=== PATIENT | female | born 1995 | race Caucasian/White ===

== ENCOUNTER 2023-11-14 12:24 | Outpatient (REF) | payer MEDICAID, SELFPAY ==
--- NOTE | 2023-11-14 11:00 | PAPFT_PTH ---
PATIENT: Dia Pereyra LOC: [facility] U#:[id number] AGE/SX: 28/F ROOM: RE11/14/[address]: Charline Li CNM : 1995 BED: DIS: 11/14/2023 SPEC #: [id number] RECD: 11/14/23 13:31 STATUS: AMALIA RELesley #: [id number] MARANDA: 11/14/23 11:[address]: Charline Li DEPT: [facility] Cytology RECD BY: Nicolasa Infante ENTERED: 11/14/23 13:32 SP TYPE: PAPFT OT DR: Unknown,Unknown Tissues: 1 - CX/ENDOCX FOR PAP SMEARS Procedures: PAP THIN PREP/[facility] Screening Comments: [id number]
== END 2023-11-14 12:25 | disposition home or self-care (01) ==
LOC: LBN 12:24
PROVIDERS: Visit Provider Advanced Practice Midwife
DX: Z39.2 Encounter for routine postpartum follow-up (principal)
CPT/HCPCS: 88142

== ENCOUNTER 2023-11-20 14:08 | Outpatient (CLI) | payer MEDICAID, SELFPAY ==
[2023-11-20 13:45] LABS: HCT 36.9 % (36.0-46.0); HGB 12.6 g/dL (11.2-15.7); MCH 29.6 pg (27.0-33.0); MCHC 34.1 % (32.0-36.0); MCV 87 fL (80-95); MPV 9.8 fL (8.0-11.0); Platelet Count 297 10^3/uL (130-400); RBC 4.26 10^6/uL (3.93-5.22); RDW 11.9 % (11.7-14.6); RDW-SD 38.1 fL; WBC 9.59 10^3/uL (4.4-10.8)
[2023-11-20 13:50] LABS: Bilirubin Negative (Negative); Blood Large (Negative); Clarity Sl Cloudy (Clear); Glucose Negative (Negative); Ketones Negative (Negative); Leukocyte Esterase Small (Negative); Nitrite Negative (Negative); Specific Gravity >= 1.030 (1.005-1.025); Urobilinogen 0.2 mg/dL (Up to 0.2); pH 5.5 (5-8)
[2023-11-20 13:54] LABS: ALT 61 U/L (14-59); AST 27 U/L (15-37); Albumin 3.5 g/dL (3.4-5.0); Alkaline Phosphatase 158 U/L (46-116); Anion Gap 7.3 mmol/L (3-11); BUN 17 mg/dL (7-18); Bilirubin, Total 0.51 mg/dL (0.2-1.0); CO2 25.7 mmol/L (21.0-32.0); CREATININE 1.2 mg/dL (0.55-1.02); Calcium 9.1 mg/dL (8.5-10.1); Chloride 109 mmol/L (98-107); Estimated GFR 63.23 (mL/min/1.73m2); Glucose 104 mg/dL (74-106); Potassium 4.1 mmol/L (3.5-5.1); Sodium 142 mmol/L (136-145); Total Protein 6.7 g/dL (6.4-8.2)
[2023-11-20 14:16] LABS: RBC 20-50 HPF (0-2)
[2023-11-20 14:17] LABS: Bacteria Few HPF (Negative); C & S Indicated? No/Sq. Contamination; Casts Negative LPF (Negative); Crystals Negative HPF (Negative); Epithelial Cells Moderate HPF (Negative); Mucus Negative (Negative)
== END 2023-11-20 14:09 | disposition home or self-care (01) ==
LOC: LBO 14:08
PROVIDERS: Visit Provider Registered Nurse
DX: R32 Unspecified urinary incontinence (principal); R19.7 Diarrhea, unspecified
CPT/HCPCS: 36415; 80053; 85027; 81003; 81015

== ENCOUNTER 2023-11-22 16:10 | Outpatient (REF) | payer MEDICAID, SELFPAY ==
[2023-11-22 23:36] LABS: C Diff PCR Negative (Negative)
[2023-11-23 23:26] LABS: Campylobacter PCR Negative (Negative); Salmonella PCR Negative (Negative); Shiga Toxin PCR Negative (Negative); Shigella/Enteroinvasive Ecoli Negative (Negative)
[2023-11-27 14:38] LABS: Helicobacter pylori Ag, Feces Negative (Negative)
[2023-11-28 15:15] LABS: Calprotectin 83.6 mcg/g
== END 2023-11-22 16:11 | disposition home or self-care (01) ==
LOC: LBN 16:10
PROVIDERS: Visit Provider Registered Nurse
DX: R19.7 Diarrhea, unspecified (principal)
CPT/HCPCS: 87338; 87493; 87505; 82272; 83993

== ENCOUNTER 2023-12-06 13:14 | Outpatient (CLI) | payer MEDICAID, SELFPAY ==
--- NOTE | 2023-12-06 | DI.RAD_ITS ---
Exam(s) XR NASAL BONES EXAM: XR NASAL BONES CLINICAL HISTORY: INJURY OF NOSE S09.92XA. TECHNIQUE: 2D digital imaging was performed. COMPARISON: No exams were available for comparison FINDINGS: 3 views No evidence of obvious depressed nasal bone fracture. There is high suspicion for nasal bone fracture then follow-up facial bone CT scan be performed IMPRESSION: No evidence of depressed nasal bone fracture. DATA REPOSITORY: RADIATION DOSE DELIVERED:
== END 2023-12-06 13:34 ==
LOC: DI 13:15
PROVIDERS: Visit Provider Physician Assistant Medical
DX: S09.92XA Unspecified injury of nose, initial encounter (principal); X58.XXXA Exposure to other specified factors, initial encounter
CPT/HCPCS: 70160

== ENCOUNTER 2024-01-08 11:21 | Outpatient (CLI) | payer MEDICAID, SELFPAY ==
--- NOTE | 2024-01-08 11:47 | DI.RAD_ITS ---
Exam(s) XR ANKLE LT COMPLETE EXAM: XR ANKLE LT COMPLETE CLINICAL HISTORY: PAIN LT ANKLE JOINT, M25.572, LT ANKLE INVERSION INJURY 1.5 WKS AGO,. TECHNIQUE: 2D digital imaging was performed. COMPARISON: No exams were available for comparison FINDINGS: 3 views No evidence of fracture or widening of the ankle mortise. Talar dome unremarkable. Bone density nor mal. No osseous lesions. No osseous tarsal coalition evident. IMPRESSION: No acute osseous findings in the ankle. DATA REPOSITORY: RADIATION DOSE DELIVERED:
== END 2024-01-08 11:41 ==
LOC: DI 11:21
PROVIDERS: PCP Student in an Organized Health Care Education/Training Program; Visit Provider Nurse Practitioner Family
DX: M25.572 Pain in left ankle and joints of left foot (principal)
CPT/HCPCS: 73610

== ENCOUNTER 2024-01-09 01:51 | Outpatient (CLI) | payer MEDICAID, SELFPAY ==
--- NOTE | 2024-01-09 07:00 | DI.US_ITS ---
Exam(s) US PELVIS TRANSVAGINAL EXAM: US PELVIS TRANSVAGINAL CLINICAL HISTORY: pelvic cramping,abnl uterine bleeding,r10.2,n93.9 TECHNIQUE: Ultrasound of the pelvis was performed both transabdominal and transvaginal. COMPARISON: No exams were available for comparison FINDINGS: UTERUS: Anteverted Measures 8.2 cm length x 4.5 cm AP x 5.5 cm wide. There are no uterine fibroids. Endometrial thickness measures 5 mm. There is no fluid in the endometrial canal. CERVIX: There is small amount of fluid in the endocervical canal. RIGHT OVARY: Measures 0.9 x 3.5 x 2.5 cm Contains sub cm follicular cysts. LEFT OVARY: Measures 3.2 x 2.2 x 3.1 cm Contains sub cm follicular cysts. CUL-DE-SAC: There no extraovarian adnexal masses and there is no free fluid in the cul-de-sac. IMPRESSION: 1. Normal appearing uterus and age-appropriate endometrium. There is, however, some mild fluid noted in the endocervical canal. 2. No abnormal ovarian findings. 3. No free fluid evident in the adnexal regions and cul-de-sac. DATA REPOSITORY:
== END 2024-01-09 02:11 ==
LOC: DI 01:51
PROVIDERS: PCP Student in an Organized Health Care Education/Training Program; Visit Provider Nurse Practitioner Women's Health
DX: R10.2 Pelvic and perineal pain (principal)
CPT/HCPCS: 76830; 76856

== ENCOUNTER 2024-01-24 03:52 | Outpatient (CLI) | payer MEDICAID, SELFPAY | END 2024-01-24 03:53 | disposition home or self-care (01) | PROVIDERS: PCP Student in an Organized Health Care Education/Training Program; Visit Provider Student in an Organized Health Care Education/Training Program | DX: G44.209 Tension-type headache, unspecified, not intractable (principal); G43.909 Migraine, unspecified, not intractable, without status migrainosus | CPT/HCPCS: 94762 ==

== ENCOUNTER 2024-02-25 16:38 | Emergency (ER) | payer MEDICAID, SELFPAY ==
[2024-02-25] VITALS (20 sets, daily range): BP systolic 120–126; BP diastolic 64–79; PULSE 56–110; RESP 15–25; TEMP 36.8; O2SAT 94–98
--- NOTE | 2024-02-25 17:00 | RT.EKG_ITS ---
APPROVED REPORT Exam: Resting ECG Reason for Exam: Lightheadedness Patient Location: E HR:66 bpm ECG Measurements Heart Rate 66 AXIS LA 140 P 79 QRSd 84 QRS 74 QT 368 T 15 QTc 386 Conclusion Sinus rhythm...normal P axis, V-rate 60- 99 Probable left atrial enlargement...P >50mS, <-0.10mV V1
--- NOTE | 2024-02-25 17:18 | ED.GENADUL_ITS ---
Discharge Plan Disposition Patient Disposition: Home Condition: Stable Discharge Details Clinical Impression: Nausea & vomiting, Acute epigastric pain, Dehydration Primary Care Provider: Lakeshia Devi ED Provider: Nicolasa Lisa Home Meds and New Rx's Prescriptions: New prochlorperazine maleate [Compazine] 10 mg tablet 10 mg PO Q6H PRNQty: 10 0RF Continued gabapentin 100 mg capsule 100 mg PO TID ibuprofen 600 mg tablet 600 mg PO Q8H PRN (Reason: headache pain & inflammation) Qty: 60 1RF Rx Instructions: Trial twice a day x 2 weeks WITH FOOD (~noon/8pm) pyridoxine (vitamin B6) 50 mg tablet 50 mg PO DAILY Qty: 90 3RF Rx Instructions: Supplement for Rx sumatriptan succinate [Imitrex] 50 mg tablet See Rx Instructions PO .COMPLEX Qty: 20 1RF Rx Instructions: take 1 tab at onset of headache; if no relief may repeat 1 tab after 1 hour (max = 2 tabs/24 hr for trial period) propranolol 20 mg tablet 60 mg PO DAILY magnesium oxide 400 mg (241.3 mg magnesium) tablet 400 mg PO DAILY naratriptan 2.5 mg tablet See Rx Instructions PO .COMPLEX Rx Instructions: take 1 tab at onset of headache; if no relief may repeat 1 tab after at least 4 hrs; max = 2 tabs/24 hrs PO norethindrone (contraceptive) 0.35 mg tablet 0.35 mg PO DAILY Qty: 84 3RF medroxyprogesterone 150 mg/mL syringe 150 mg IM Q12W Qty: 1 3RF aripiprazole 20 mg tablet 10 mg PO DAILY Qty: 7 0RF Rx Instructions: * Cross-tapering to quetiapine: Take 1/2 tab, qAM x 7 days, then STOP * buspirone 10 mg tablet 10 mg PO BID Qty: 60 2RF duloxetine [Cymbalta] 30 mg capsule,delayed release(DR/EC) 30 mg PO DAILY Qty: 30 2RF quetiapine 50 mg tablet 50 mg PO BID Qty: 60 2RF Rx Instructions: * Take 1/2 tab at dinner and 1/2 tab at bedtime x 1 week, THEN increase to 1 tab at dinner and 1 tab at bedtime every day * lisdexamfetamine [Vyvanse] 20 mg capsule 20 mg PO QAM MDD 20 Qty: 30 0RF Discharge Instructions Instructions: Abdominal Pain, Adult ED, Nausea and Vomiting, Adult ED Additional Instructions: Take your omeprazole as prescribed Take the Zofran as needed for nausea and vomiting, I am sending a prescription for Compazine to your pharmacy, this is another antiemetic Try to have small sips of Gatorade or clara simone, no more than 1 to 2 tablespoons at a time every few minutes as tolerated if you are feeling very nauseous, if you have too much to drink at once I will make you vomit Do not try any solid food into your regularly able to take fluids Please follow-up with your doctor and return earlier should you have new or worsening complaints Discharge Data Discharge Date/Time-TO BE ENTERED AT DEPARTURE: 02/25/24 22:32 HPI General Date/Time Provider Initiated Documentation: 02/25/24 16:44 . HPI Narrative: This 28-year-old female presents with nausea, vomiting, and cramping in her abdomen. She states she has a history of heartburn she has been taking her omeprazole but she frequently has been vomiting it up and thinks it is precipitating exacerbation of her symptoms. 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 She is approximately 4 months denies any known sick contacts. Occasionally when she has vomited frequently throughout the day she has scant blood in her vomitus per patient. She describes it as being dark in color. She denies any obvious blood in her stool. Patient she denies any chest pain or shortness of breath she states that she feels lightheaded and dehydrated palpation. She denies chance of and is currently on her menstruation. Related Data Home Medications ?Medication ?Instructions ?Recorded ?Confirmed magnesium oxide 400 mg (241.3 mg 400 mg PO DAILY 10/24/23 02/25/24 magnesium) tablet propranolol 20 mg tablet 60 mg PO DAILY 10/24/23 02/25/24 naratriptan 2.5 mg tablet See Rx Instructions PO .COMPLEX 11/14/23 02/25/24 norethindrone (contraceptive) 0.35 0.35 mg PO DAILY #84 tabs 12/24/23 02/25/24 mg tablet gabapentin 100 mg capsule 100 mg PO TID 10/08/24 12/09/24 ibuprofen 600 mg tablet 600 mg PO Q8H PRN headache pain & 12/25/23 02/25/24 inflammation #60 tabs pyridoxine (vitamin B6) 50 mg 50 mg PO DAILY #90 tabs 12/25/23 02/25/24 tablet sumatriptan succinate 50 mg tablet See Rx Instructions PO .COMPLEX 12/25/23 02/25/24 (Imitrex) #20 tabs medroxyprogesterone 150 mg/mL 150 mg IM Q12W #1 mL 01/02/24 02/25/24 intramuscular syringe aripiprazole 20 mg tablet 10 mg (1/2 x 20 mg) PO DAILY #7 02/18/24 02/25/24 tabs buspirone 10 mg tablet 10 mg PO BID #60 tabs 02/18/24 02/25/24 duloxetine 30 mg capsule,delayed 30 mg PO DAILY #30 caps 02/18/24 02/25/24 release (Cymbalta) quetiapine 50 mg tablet 50 mg PO BID #60 tabs 02/18/24 02/25/24 lisdexamfetamine 20 mg capsule 20 mg PO QAM #30 caps 02/19/24 02/25/24 (Vyvanse) prochlorperazine maleate 10 mg 10 mg PO Q6H PRN #10 tabs 02/25/24 tablet (Compazine) Previous Rx's ?Medication ?Instructions ?Recorded norethindrone (contraceptive) 0.35 0.35 mg PO DAILY #84 tabs 12/24/23 mg tablet ibuprofen 600 mg tablet 600 mg PO Q8H PRN headache pain & 12/25/23 inflammation #60 tabs pyridoxine (vitamin B6) 50 mg 50 mg PO DAILY #90 tabs 12/25/23 tablet sumatriptan succinate 50 mg tablet See Rx Instructions PO .COMPLEX 12/25/23 (Imitrex) #20 tabs medroxyprogesterone 150 mg/mL 150 mg IM Q12W #1 mL 01/02/24 intramuscular syringe aripiprazole 20 mg tablet 10 mg (1/2 x 20 mg) PO DAILY #7 02/18/24 tabs buspirone 10 mg tablet 10 mg PO BID #60 tabs 02/18/24 duloxetine 30 mg capsule,delayed 30 mg PO DAILY #30 caps 02/18/24 release (Cymbalta) quetiapine 50 mg tablet 50 mg PO BID #60 tabs 02/18/24 lisdexamfetamine 20 mg capsule 20 mg PO QAM #30 caps 02/19/24 (Vyvanse) prochlorperazine maleate 10 mg 10 mg PO Q6H PRN #10 tabs 02/25/24 tablet (Compazine) Allergies Allergy/AdvReac Type Severity Reaction Status Date / Time latex Allergy Severe Anaphylaxis Verified 02/25/24 16:44 General Stated Complaint: Abd Prob ASHLEY: 3 Exam Narrative Exam Narrative: Alert, oriented, pale appearing 28-year-old female in no acute distress, no abdominal tenderness, lungs clear to auscultation, cardiac rate rhythm regular Course Vital Signs Vital signs: Vital Signs Temperature 36.8 C 02/25/24 16:39 Pulse 110 H 02/25/24 16:39 Respiratory Rate 15 02/25/24 16:39 Blood Pressure 120/79 02/25/24 16:39 Pulse Oximetry 97 02/25/24 16:39 Temperature 36.8 C 02/25/24 16:43 Temperature Source Tympanic 02/25/24 16:43 Pulse 110 H 02/25/24 16:43 Respiratory Rate 15 02/25/24 16:43 Respiratory Effort Normal 02/25/24 16:43 Blood Pressure 120/79 02/25/24 16:43 Blood Pressure Position Sitting 02/25/24 16:43 Pulse Oximetry 98 02/25/24 16:43 Oxygen Delivery Method Room Air 02/25/24 16:43 Oxygen Flow Rate 0 02/25/24 16:39 Medical Decision Making 28-year-old female presents with abdominal pain nausea and vomiting, in no acute distress, hemodynamically stable with mild diffuse abdominal pain without rebound or guarding. Labs and medications including Compazine and fluids were initiated. Patient is feeling marked improvement in symptoms. Able to tolerate p.o. challenge x 2. Potassium 2.8, given 20 mEq of IV potassium and 40 mill equivalents of p.o. potassium which patient was able to tolerate, placed on potassium for home and given antiemetics. Return precautions reviewed and patient expressed understanding, abdominal exam on reassessment is benign. Patient did receive 1 L of normal saline. Outpatient reassessment with PCP in the next several days recommended with reassessment of potassium in the outpatient setting. Quality:SDOH Health Related Social Needs: No Data to Display PFSH All Active Problems (Updated 02/25/24 @ 21:29 by DIONNA Armstrong) Dehydration (Acute) Acute epigastric pain (Acute) Nausea & vomiting (Acute) Vaginal irritation (Acute) Dysuria (Acute) Snoring (Acute) Pt admits to snoring .. [ ] ovrnt puls ox Tension type headache (Acute) Stress headaches (Acute) able improve pain with resting head, closing eyes .. so qHS is often better, but still there Cluster headaches (Acute) Migraine (Chronic) per Hx and description (photophobia)(adolescence)(triptan use) Depression (Chronic) Tachycardia (Acute) Skin lesions (Acute) Reactive airway disease (Acute) Precordial pain (Acute) Panic attacks (Acute) Moderate persistent asthma in adult without complication (Acute) Latex allergy (Acute) GERD (gastroesophageal reflux disease) (Chronic) Need for dental care (Acute) ANSHU (generalized anxiety disorder) (Acute) Counselor in [place] through [facility]- will be switching to Counselor at [facility] in [facility]; Also Psychiatry through [facility]. ADHD (Acute) Per Pt on 10/24/23.Counselor in [place] through [facility]- will be switching to Counselor at [facility] in [facility]; Also Psychiatry through [facility]. Bipolar 2 disorder (Acute) Per Pt on 10/24/23.Counselor in [place] through [facility]- will be switching to Counselor at [facility] in [facility]; Also Psychiatry through [facility]. Surveillance for Depo-Provera contraception (Acute) pt reports she received Depo injection 10/03/23 Medical History Migraine aura without headache per Hx .. but chart review shows Hx AURA (+) Chronic post-traumatic headache presumed 2' Hx concussions Depression with anxiety Dx'd with Bipolar 2 Surgical History History of surgical removal of ganglion cyst 2009 - [facility] 2018 [place] Hand surgery, Dr. [place] H/O wisdom tooth extraction 2013 Family History Mother Bipolar 1 disorder Schizophrenia Anxiety Depression Sister Psychosis Paternal Grandfather Alcohol use disorder Diabetes Hypertension Father Anxiety Hypertension Depression Asthma Social History Smoking/Tobacco Use Status: Former Tobacco Use Smoking risk assessment performed?: Yes Alcohol Intake: former Year quit: 2018 Drug use: Occasionally Substance use type: marijuana Adopted: No Caregiver/Support person: No Foster care: No Household members: spouse Housing: apartment Number of Children: 1 Communication Needs: Corrective Lenses Education Level: high school Do you need help understanding health information?: Often current occupation: Caregiver Pets and animals: Yes (2) Pets and animals: cat(s) Sexually active: Yes Do you think of yourself as: straight/heterosexual Current gender identity: female What is your relationship status?: How often do you talk on the phone with friends or family?: three or more times per week How often do you get together with friends or relatives?: once per week Do you belong to any clubs or organized social groups?: no Panel score (0-1 are the most socially isolated patients): 2 What type of physical activity do you participate in: walking Duration: 15-30 minutes/day Frequency: 1-2 times per week Norma/Jewish: None Special norma needs: No Seatbelt use: always Helmet use: Yes Drive intox or ride w/intox lease purchase truck driver: No
[2024-02-25] MEDS: Prochlorperazine 10 MG/2 ML VIAL IVP (17:40)
[2024-02-25] MEDS: diphenhydrAMINE 50 MG/ML VIAL 12.5 MG IVP (17:40)
[2024-02-25] MEDS: Normal Saline 1,000 ML 1000 ML IV (17:41)
[2024-02-25 17:52] LABS: Abs Immature Grans 0.04 10^3/uL (0.0-0.06); Absolute Basophil Count 0.03 10^3/uL (0.0-0.2); Absolute Eosinophil Count 0.01 10^3/uL (0.0-0.7); Absolute Lymphocyte Count 1.47 10^3/uL (1.2-3.4); Absolute Monocyte Count 0.71 10^3/uL (0.1-0.8); Basophils % 0.3 %; Eosinophils % 0.1 %; HCT 44.3 % (36.0-46.0); HGB 15.6 g/dL (11.2-15.7); Immature Grans % 0.3 %; Lymphocytes % 12.8 %; MCH 29.3 pg (27.0-33.0); MCHC 35.2 % (32.0-36.0); MCV 83 fL (80-95); MPV 10.2 fL (8.0-11.0); Monocytes % 6.2 %; Neutrophils % 80.3 %; Platelet Count 280 10^3/uL (130-400); RBC 5.33 10^6/uL (3.93-5.22); RDW 11.9 % (11.7-14.6); WBC 11.46 10^3/uL (4.4-10.8)
[2024-02-25 18:10] LABS: HCG Qual (Serum) Negative
[2024-02-25 18:17] LABS: ALT 32 U/L (14-59); AST 19 U/L (15-37); Albumin 4.7 g/dL (3.4-5.0); Alkaline Phosphatase 132 U/L (46-116); Anion Gap 13.8 mmol/L (3-11); BUN 13 mg/dL (7-18); Bilirubin, Total 1.07 mg/dL (0.2-1.0); CO2 27.2 mmol/L (21.0-32.0); CREATININE 0.9 mg/dL (0.55-1.02); Calcium 10.1 mg/dL (8.5-10.1); Chloride 102 mmol/L (98-107); Glucose 111 mg/dL (74-106); Magnesium 1.9 mg/dL (1.8-2.4); Sodium 143 mmol/L (136-145); Total Protein 8.1 g/dL (6.4-8.2)
[2024-02-25 18:21] LABS: Potassium 2.8 mmol/L (3.5-5.1)
[2024-02-25 18:23] LABS: TSH (W/Ref FT4) 1.66 uIU/mL (0.36-3.74)
[2024-02-25] MEDS: POTASSIUM CHLORIDE 20 MEQ/100 ML BAG 50 MEQ IV_INF (18:58)
[2024-02-25] MEDS: Potassium Chloride Liquid 20 MEQ PKT PO (20:05)
[2024-02-25] MEDS: FAMOTIDINE 20 MG in Normal Saline 100 ML 400 MG IVPB (21:36)
[2024-02-25] MEDS: Ondansetron 4 MG/2 ML VIAL IVP (21:37)
[2024-02-25] MEDS: Ondansetron O.D.T. 4 MG TABEF, 3 TABS/BTL PO (21:43)
== END 2024-02-25 22:32 | disposition home or self-care (01) ==
PROVIDERS: Emergency Provider Physician Assistant; PCP Student in an Organized Health Care Education/Training Program
DX: R11.2 Nausea with vomiting, unspecified (principal); R10.13 Epigastric pain; E86.0 Dehydration; Z87.891 Personal history of nicotine dependence
CPT/HCPCS: 36415; 80053; 93005; 96361; 96365; 96366; 96367; 96375; 99284; 83735; 84443; 84703; 85025; 93010; J0780; J1200; J2405; J3480

== ENCOUNTER 2024-05-14 01:49 | Outpatient (CLI) | payer MEDICAID, SELFPAY ==
--- NOTE | 2024-05-14 14:30 | DI.MRI_ITS ---
Exam(s) MR BRAIN WO EXAM: MR BRAIN WO CLINICAL HISTORY: ? MULTIPLE SCLEROSIS,ATYPICAL MIGRAINE,PARESTHESISAS, r20.2,G43.009 TECHNIQUE: Multiplanar multisequence MRI of the brain was performed. COMPARISON: No exams were available for comparison FINDINGS: VENTRICLES AND EXTRA AXIAL SPACES: Normal in size and morphology for the patient's age. MIDLINE SHIFT: None. CEREBRAL PARENCHYMA: No focus of restricted diffusion to suggest acute infarct. No space-occupying le ann identified. HEMORRHAGE: None. BRAINSTEM/CEREBELLUM: Normal. CALVARIUM: Normal. VISUALIZED PARANASAL SINUSES/MASTOIDS:Clear. [place]: Normal flow void. PITUITARY GLAND: Unremarkable. OTHER FINDINGS: None. IMPRESSION: Unremarkable MRI of the brain. DATA REPOSITORY:
== END 2024-05-14 02:09 ==
LOC: DI 01:49
PROVIDERS: PCP Nurse Practitioner Family; Visit Provider Nurse Practitioner Adult Health
DX: G43.009 Migraine without aura, not intractable, without status migrainosus (principal); R20.2 Paresthesia of skin
CPT/HCPCS: 70551

== ENCOUNTER 2024-06-30 14:49 | Outpatient (CLI) | payer MEDICAID, SELFPAY ==
--- NOTE | 2024-06-30 11:00 | DI.RAD_ITS ---
Exam(s) XR WRIST LT COMPLETE EXAM: XR WRIST LT COMPLETE CLINICAL HISTORY: RIGHT WRIST PAIN. TECHNIQUE: 2D digital imaging was performed. Three views. COMPARISON: No exams were available for comparison FINDINGS: BONES: No acute fracture is present. No bony destructive lesion is seen. JOINTS: The carpal bones are normally aligned. There are no significant degenerative changes. SOFT TISSUE: Normal. IMPRESSION: Unremarkable radiographs of the left wrist. DATA REPOSITORY: RADIATION DOSE DELIVERED:
== END 2024-06-30 14:50 | disposition home or self-care (01) ==
LOC: DIORS 14:49
PROVIDERS: PCP Nurse Practitioner Family; Visit Provider Student in an Organized Health Care Education/Training Program
DX: Z98.890 Other specified postprocedural states (principal); M25.532 Pain in left wrist
CPT/HCPCS: 73110

== ENCOUNTER 2024-07-28 04:47 | Outpatient (CLI) | payer MEDICAID, SELFPAY ==
--- NOTE | 2024-07-28 13:51 | W.PFT ---
Date of service: 07/28/24 Time of Service: 09:56 Pulmonary Function Test Result Indications: Asthma Interpretation Spirometry: There was a 60% decrease in FEV1 with administration of 0.5mg/mL methacholine. Impression Positive methacholine challenge test Clinical Correlation therefore is recommended.
[2024-07-28] MEDS: Methacholine 100 MG VIAL IH (14:05)
[2024-07-28] MEDS: Inhaler, Assist Device 1 EACH MC (14:05)
[2024-07-28] MEDS: Albuterol HFA 18 GM 200 PUFF INH IH (14:06)
== END 2024-07-28 04:48 | disposition home or self-care (01) ==
LOC: RT 04:47
PROVIDERS: PCP Nurse Practitioner Family; Visit Provider Student in an Organized Health Care Education/Training Program
DX: J45.40 Moderate persistent asthma, uncomplicated
CPT/HCPCS: 94070; 95070; J7674

== ENCOUNTER 2024-08-15 10:25 | Outpatient (REF) | payer MEDICAID, SELFPAY | END 2024-08-15 10:26 | disposition home or self-care (01) | LOC: LBN 10:25 | PROVIDERS: PCP Nurse Practitioner Family; Visit Provider Obstetrics & Gynecology | DX: R10.2 Pelvic and perineal pain (principal) | CPT/HCPCS: 87086 ==

== ENCOUNTER 2024-08-27 13:52 | Outpatient (REF) | payer MEDICAID, SELFPAY | END 2024-08-27 13:53 | disposition home or self-care (01) | LOC: LBN 13:52 | PROVIDERS: PCP Nurse Practitioner Family; Visit Provider Nurse Practitioner Women's Health | DX: R30.0 Dysuria (principal) | CPT/HCPCS: 87086 ==

== ENCOUNTER 2024-09-16 11:03 | Outpatient (CLI) | payer MEDICAID, SELFPAY ==
--- NOTE | 2024-09-16 11:00 | RT.EKG_ITS ---
APPROVED REPORT Exam: Resting ECG Reason for Exam: elevated hr Patient Location: O HR:84 bpm ECG Measurements Heart Rate 84 AXIS MS 137 P 73 QRSd 76 QRS 39 QT 337 T 31 QTc 399 Conclusion Sinus rhythm...normal P axis, V-rate 50- 99 normal ECG
== END 2024-09-16 11:04 | disposition home or self-care (01) ==
LOC: DI.KIM 11:04
PROVIDERS: PCP Nurse Practitioner Family; Visit Provider Nurse Practitioner Family
DX: R00.0 Tachycardia, unspecified (principal)
CPT/HCPCS: 93010

== ENCOUNTER 2024-09-16 11:22 | Outpatient (REF) | payer MEDICAID, SELFPAY | END 2024-09-16 11:23 | disposition home or self-care (01) | LOC: LBN 11:22 | PROVIDERS: PCP Nurse Practitioner Family; Visit Provider Nurse Practitioner Family | DX: L98.9 Disorder of the skin and subcutaneous tissue, unspecified (principal) | CPT/HCPCS: 87077; 87070; 87186 ==

== ENCOUNTER 2024-09-22 13:52 | Outpatient (REF) | payer MEDICAID, SELFPAY ==
[2024-09-23 13:48] LABS: Helicobacter pylori Ag, Feces Negative (Negative)
== END 2024-09-22 13:53 | disposition home or self-care (01) ==
LOC: LBN 13:52
PROVIDERS: PCP Nurse Practitioner Family; Visit Provider Physical Therapy Assistant
DX: K21.9 Gastro-esophageal reflux disease without esophagitis (principal)
CPT/HCPCS: 87338

== ENCOUNTER 2024-09-24 12:10 | Outpatient (CLI) | payer MEDICAID, SELFPAY ==
--- NOTE | 2024-09-24 11:33 | DI.RAD_ITS ---
Exam(s) XR CHEST 2V PA LATERAL EXAM: XR CHEST 2V PA LATERAL CLINICAL HISTORY: chronic cough, asthma, J45.909; former cigarette smoker, Z87.891 TECHNIQUE: 2D digital imaging was performed. Two views. COMPARISON: No exams were available for comparison FINDINGS: HEART: Normal size. Aorta: Not dilated. PULMONARY VASCULATURE: Normal. MEDIASTINUM: Unremarkable. LUNGS: Clear. PLEURAL SPACE: No pleural effusion or pneumothorax. BONE:Unremarkable for age. SOFT TISSUES: Unremarkable. IMPRESSION: No acute abnormality. DATA REPOSITORY: RADIATION DOSE DELIVERED:
== END 2024-09-24 12:30 ==
LOC: DI 12:10
PROVIDERS: PCP Nurse Practitioner Family; Visit Provider Physician Assistant Surgical
DX: J45.909 Unspecified asthma, uncomplicated (principal); Z87.891 Personal history of nicotine dependence
CPT/HCPCS: 71046

== ENCOUNTER 2024-09-24 12:14 | Outpatient (REF) | payer MEDICAID, SELFPAY ==
[2024-09-24 09:10] LABS: Abs Immature Grans 0.03 10^3/uL (0.0-0.06); HCT 39.8 % (36.0-46.0); HGB 13.4 g/dL (11.2-15.7); Immature Grans % 0.3 %; MCH 29.1 pg (27.0-33.0); MCHC 33.7 % (32.0-36.0); MCV 87 fL (80-95); MPV 9.6 fL (8.0-11.0); Platelet Count 245 10^3/uL (130-400); RBC 4.60 10^6/uL (3.93-5.22); RDW 12.5 % (11.7-14.6); RDW-SD 38.8 fL; WBC 8.66 10^3/uL (4.4-10.8)
[2024-09-24 09:46] LABS: RBC Morphology Normal
== END 2024-09-24 12:15 | disposition home or self-care (01) ==
LOC: LBN 12:14
PROVIDERS: PCP Nurse Practitioner Family; Visit Provider Physician Assistant Surgical
DX: J45.909 Unspecified asthma, uncomplicated (principal)
CPT/HCPCS: 82785; 85025

== ENCOUNTER 2024-09-24 15:42 | Outpatient (REF) | payer MEDICAID, SELFPAY | END 2024-09-24 15:43 | disposition home or self-care (01) | LOC: LBN 15:42 | PROVIDERS: PCP Nurse Practitioner Family; Visit Provider Nurse Practitioner Women's Health | DX: R30.0 Dysuria (principal); B96.29 Other Escherichia coli [E. coli] as the cause of diseases classified elsewhere | CPT/HCPCS: 87077; 87086; 87186 ==

== ENCOUNTER 2024-10-09 12:03 | Outpatient (REF) | payer MEDICAID, SELFPAY | END 2024-10-09 12:04 | disposition home or self-care (01) | LOC: LBN 12:03 | PROVIDERS: PCP Nurse Practitioner Family; Visit Provider Obstetrics & Gynecology | DX: N89.8 Other specified noninflammatory disorders of vagina (principal) | CPT/HCPCS: 87480; 87510; 87660 ==

== ENCOUNTER 2024-11-03 02:28 | Outpatient (CLI) | payer MEDICAID, SELFPAY ==
--- NOTE | 2024-11-03 06:30 | DI.US_ITS ---
Exam(s) US ABDOMEN EXAM: US ABDOMEN CLINICAL HISTORY: ? gallbladder changes/stones, nausea, vomiting,gerd,k21.9,r11.2 TECHNIQUE: Ultrasound of complete upper abdomen performed using standard protocol. COMPARISON: US US PELVIS TRANSVAGINAL from 01/09/2024 FINDINGS: There is no ascites evident. LIVER: There are no hepatic lesions evident nor obvious dilatation of intrahepatic ducts. GALLBLADDER/BILIARY: There are no gallstones. No gallbladder wall edema nor pericholecystic fluid. Gallbladder wall thickness is minimally prominent but this most probably related to the gallbladder appearing somewhat contracted. The common hepatic duct isnot dilated, measuring 3-4mm at the level of garland hepatis. PANCREAS: There is no evidence of pancreatic mass nor dilatation of the pancreatic duct. SPLEEN: The spleen is not enlarged and there are no intrasplenic lesions evident. KIDNEYS:Kidneys exhibit normal size with no evidence of solid mass, calculus, nor hydronephrosis. No cortical cysts evident. ABDOMINAL AORTA: There is no evidence of abdominal aortic aneurysm. IVC: Normal diameter where visualized. IMPRESSION: 1. No evidence of cholelithiasis nor dilatation of the biliary tree. 2. No other significant ultrasound findings in the upper abdomen. 3. There is no ascites. DATA REPOSITORY:
== END 2024-11-03 02:48 ==
PROVIDERS: PCP Nurse Practitioner Family; Visit Provider Physical Therapy Assistant
DX: K21.9 Gastro-esophageal reflux disease without esophagitis (principal); R11.2 Nausea with vomiting, unspecified
CPT/HCPCS: 76700

== ENCOUNTER 2024-11-13 17:09 | Outpatient (REF) | payer MEDICAID, SELFPAY ==
[2024-11-13 16:05] LABS: Anion Gap 11.3 mmol/L (3-11); BUN 18 mg/dL (7-18); CO2 23.7 mmol/L (21.0-32.0); Calcium 10.3 mg/dL (8.5-10.1); Chloride 108 mmol/L (98-107); Estimated GFR 119.99 (mL/min/1.73m2); Glucose 103 mg/dL (74-106); Magnesium 2.3 mg/dL (1.8-2.4); Potassium 3.9 mmol/L (3.5-5.1); Sodium 143 mmol/L (136-145); TSH (W/Ref FT4) 1.66 uIU/mL (0.36-3.74)
== END 2024-11-13 17:10 | disposition home or self-care (01) ==
LOC: LBN 17:09
PROVIDERS: PCP Nurse Practitioner Family; Visit Provider Physician Assistant Medical
DX: R03.0 Elevated blood-pressure reading, without diagnosis of hypertension (principal)
CPT/HCPCS: 80048; 83735; 84443